=== PATIENT | female | born 1945 | race Caucasian/White ===

== ENCOUNTER → 2017-10-14 | Outpatient (CLI) | payer MEDICARE | END | disposition home or self-care (01) | LOC: CFH 08:19 | PROVIDERS: ATTEND Nurse Practitioner Primary Care | DX: M51.16 Intervertebral disc disorders with radiculopathy, lumbar region (principal) | CPT/HCPCS: 72114; 72148 ==

== ENCOUNTER 2018-05-14 06:04 | Observation (INO) | payer MEDICARE ==
[~2018-05-14] VITALS: Ht 160 cm; Wt 46.9 kg
[2018-05-14] MEDS ORDERED: ONDANSETRON 2MG/ML, 2ML ONE ×2 (07:54→12:31)
[2018-05-14] MEDS ORDERED: HYDROmorphone 2 MG/ML, 1ML ONE ×2 (07:54→12:31)
[2018-05-14] MEDS ORDERED: ONDANSETRON 2MG/ML, 2ML IVPush ONE (08:00)
[2018-05-14] MEDS ORDERED: SODIUM CHLORIDE 0.9% 1,000ML IVBOLUS ONE (08:00)
[2018-05-14] MEDS ORDERED: SODIUM CHLORIDE FLUSH 10ML SYR IVF ONE (08:00)
[2018-05-14] MEDS: HYDROmorphone 2 MG/ML, 1ML IVPush PRN ×2 (08:04→12:36)
[2018-05-14 08:19] LABS: ALANINE AMINOTRANSFERASE 25 U/L (12-78); ALBUMIN 3.2 g/dL (3.4-5.0); ANION GAP 8 mmol/L (5-15); CALCIUM 8.7 mg/dL (8.5-10.1); CHLORIDE 104 mmol/L (98-107)
[2018-05-14 08:21] LABS: ALKALINE PHOSPHATASE 348 U/L (45-117); BILIRUBIN,TOTAL 0.4 mg/dL (0.2-1.0); TOTAL PROTEIN 7.8 g/dL (6.4-8.2)
[2018-05-14] MEDS ORDERED: OMNIPAQUE 350 MG/ML, 100ML BOTTLE ONE (08:41)
[2018-05-14 08:46] LABS: MICROSCOPIC INDICATED
[2018-05-14 08:59] LABS: CULTURE INDICATED? NO
[2018-05-14] MEDS ORDERED: METOCLOPRAMIDE 5 MG/ML, 2ML ONE (09:17)
[2018-05-14 09:22] LABS: BASOPHILS # (AUTO) 0.06 x10^3/uL (0-0.1); BASOPHILS % (AUTO) 1 % (0-1); EOSINOPHILS # (AUTO) 0.08 x10^3/uL (0-0.4); EOSINOPHILS % (AUTO) 1 % (1-7); LYMPHOCYTES # (AUTO) 1.89 x10^3/uL (1-3.4); LYMPHOCYTES % (AUTO) 20 % (22-44); MD NO; MEAN CORPUSCULAR HEMOGLOBIN 28.5 pg (27.0-34.8); MEAN CORPUSCULAR HGB CONC 32.6 g/dL (32.4-35.8); MEAN CORPUSCULAR VOLUME 87.3 fL (80-100); MEAN PLATELET VOLUME 8.6 fL (7.4-10.4); MONOCYTES # (AUTO) 0.83 x10^3/uL (0.2-0.8); MONOCYTES % (AUTO) 9 % (2-9); NEUTROPHILS # (AUTO) 6.65 x10^3/uL (1.8-6.8); NEUTROPHILS % (AUTO) 70 % (42-75); PLATELET COUNT 369 x10^3/uL (130-400); RED BLOOD COUNT 4.69 x10^6/uL (3.82-5.3); RED CELL DISTRIBUTION WIDTH 13.3 % (9.6-15.2)
[2018-05-14] MEDS ORDERED: METOCLOPRAMIDE 5 MG/ML, 2ML IVPush ONE (09:30)
[2018-05-14] MEDS ORDERED: LEVO75TA PO (12:22)
[2018-05-14] MEDS ORDERED: MORPHINE PEG (12:22)
[2018-05-14] MEDS ORDERED: OXYC10TA6 PO (12:22)
[2018-05-14] MEDS ORDERED: [UNRECOGNIZED DRUG - REMARK] PEG (12:22)
[2018-05-14] MEDS ORDERED: METOCLOPRAMIDE 5 MG/ML, 2ML IVPush PRN (12:30)
[2018-05-14] MEDS ORDERED: hydrALAzine 20 MG/ML, 1ML IVPush PRN (12:30)
[2018-05-14] MEDS ORDERED: LABETALOL 5MG/ML, 20ML IVPush PRN (12:30)
[2018-05-14] MEDS: ONDANSETRON 2MG/ML, 2ML IVPush PRN (12:36)
[2018-05-14 13:05] LABS: THYROID STIMULATING HORMONE 1.01 mIU/L (0.358-3.740)
[2018-05-14 15:32] VITALS: BP 216/100
[2018-05-14 16:16] LABS: RAPID INFLUENZA A Negative (Negative); RAPID INFLUENZA B Negative (Negative)
[2018-05-14 17:10] VITALS: BP 176/95
[2018-05-14] MEDS ORDERED: TIZA4CAP PO (17:14)
[2018-05-14 17:24] VITALS: BP 216/100
[2018-05-14] MEDS ORDERED: OXYcodone 5 MG/5 ML ORAL.SOL UDC PO PRN (18:30)
[2018-05-14] MEDS: OXYCODONE MC SCH (19:00)
[2018-05-14] MEDS: [UNRECOGNIZED DRUG - OTHER] MC SCH (19:00)
[2018-05-14] MEDS ORDERED: AMLODIPINE 5 MG TABLET PO ONE (19:00)
[2018-05-14] MEDS: MORPHINE MC SCH (19:00)
[2018-05-14] MEDS ORDERED: TIZANIDINE 4MG TABLET PO PRN (19:00)
[2018-05-14 19:09] VITALS: BP 177/74
[2018-05-14 20:47] VITALS: BP 180/61
[2018-05-14] MEDS ORDERED: TEMPLATE NON-FORMULARY MED. (Oxycodone Hcl** 10 MG) PO SCH (21:00)
[2018-05-14] MEDS ORDERED: [UNRECOGNIZED DRUG - OTHER] PEG SCH (21:00)
[2018-05-14] MEDS ORDERED: MORPHINE 15 MG PEG SCH (21:00)
[2018-05-14] MEDS: PANTOPRAZOLE 40 MG IV IVPush SCH (21:26)
[2018-05-14 22:52] VITALS: BP 172/94
[2018-05-14] MEDS ORDERED: ACETAMINOPHEN 325 MG TABLET PO PRN (23:00)
[2018-05-15 00:59] VITALS: BP 153/84
[2018-05-15] MEDS: OXYCODONE MC SCH (03:00)
[2018-05-15] MEDS: MORPHINE MC SCH (03:00)
[2018-05-15] MEDS: [UNRECOGNIZED DRUG - OTHER] MC SCH (03:00)
[2018-05-15] MEDS: ONDANSETRON 2MG/ML, 2ML IVPush PRN (04:00)
[2018-05-15 04:34] LABS: BASOPHILS # (AUTO) 0.09 x10^3/uL (0-0.1); BASOPHILS % (AUTO) 1 % (0-1); EOSINOPHILS # (AUTO) 0.01 x10^3/uL (0-0.4); EOSINOPHILS % (AUTO) 0 % (1-7); LYMPHOCYTES # (AUTO) 2.43 x10^3/uL (1-3.4); LYMPHOCYTES % (AUTO) 23 % (22-44); MD NO; MEAN CORPUSCULAR HEMOGLOBIN 29.3 pg (27.0-34.8); MEAN CORPUSCULAR HGB CONC 33.6 g/dL (32.4-35.8); MEAN CORPUSCULAR VOLUME 87.3 fL (80-100); MEAN PLATELET VOLUME 8.4 fL (7.4-10.4); MONOCYTES # (AUTO) 1.03 x10^3/uL (0.2-0.8); MONOCYTES % (AUTO) 10 % (2-9); NEUTROPHILS # (AUTO) 6.87 x10^3/uL (1.8-6.8); NEUTROPHILS % (AUTO) 66 % (42-75); PLATELET COUNT 435 x10^3/uL (130-400); RED BLOOD COUNT 5.21 x10^6/uL (3.82-5.3); RED CELL DISTRIBUTION WIDTH 13.1 % (9.6-15.2)
[2018-05-15 04:47] LABS: ANION GAP 11 mmol/L (5-15); CALCIUM 8.4 mg/dL (8.5-10.1); CHLORIDE 97 mmol/L (98-107)
[2018-05-15 04:49] LABS: CREATININE 0.54 mg/dL (0.55-1.02)
[2018-05-15] MEDS ORDERED: LEVOTHYROXINE 75 MCG TABLET PO SCH (06:00)
[2018-05-15] MEDS ORDERED: PANTOPRAZOLE 40 MG IV IVPush SCH (07:30)
[2018-05-15 07:45] VITALS: BP 172/86
[2018-05-15] MEDS ORDERED: POTASSIUM CHLORIDE 20 MEQ TAB.ER.PRT PO ONE (08:30)
[2018-05-15] MEDS ORDERED: OXYcodone IR 5MG TABLET PO SCH (08:31)
[2018-05-15] MEDS ORDERED: AMLODIPINE 5 MG TABLET PO SCH (09:00)
[2018-05-15] MEDS: PANTOPRAZOLE 40 MG IV IVPush SCH (09:03)
[2018-05-15] MEDS ORDERED: SUCRALFATE 1 GM/10 ML UDC PO SCH (11:00)
[2018-05-15 13:10] VITALS: BP 124/76
[2018-05-15] MEDS ORDERED: PANT20TA2 PO (16:01)
[2018-05-15] MEDS ORDERED: SUCR1ORA11 PO (16:01)
[2018-05-15] MEDS ORDERED: ONDA4TAB7 PO (16:01)
[2018-05-15] MEDS ORDERED: AMLO-150 PO (16:01)
[2018-05-15 16:43] VITALS: BP 146/81
== END 2018-05-15 16:55 | disposition home or self-care (01) ==
LOC: ED 09:47 → EDIP 12:11 → 3NE 15:02
PROVIDERS: ADMIT Hospitalist; ATTEND Hospitalist
DX: R11.2 Nausea with vomiting, unspecified (principal); J44.9 Chronic obstructive pulmonary disease, unspecified; I73.9 Peripheral vascular disease, unspecified; G89.29 Other chronic pain; Z87.11 Personal history of peptic ulcer disease; Z87.891 Personal history of nicotine dependence; Z79.899 Other long term (current) drug therapy
CPT/HCPCS: 36415; 74177; 74220; 80048; 80053; 81001; 83605; 83690; 83735; 84100; 84443; 85025; 87400; 93005; 96361; 96374; 96375; 96376; 99284; C9113; G0378; J0360; J1170; J2405; J2765; J7030; Q9967

== ENCOUNTER → 2018-05-21 | Outpatient (CLI) | payer MEDICARE ==
[~2018-05-21] MED LIST: AMLO-150 PO; LEVO75TA PO; MORP15TA PO; MORPHINE PEG; ONDA4TAB7 PO; OXYC10TA6 PO; PANT20TA2 PO; SUCR1ORA11 PO; TIZA4CAP PO; [UNRECOGNIZED DRUG - REMARK] PEG
== END | disposition home or self-care (01) ==
LOC: RAD 08:38
PROVIDERS: ATTEND Nurse Practitioner Critical Care Medicine
DX: Z02.9 Encounter for administrative examinations, unspecified (principal)

== ENCOUNTER → 2018-05-24 | Outpatient (CLI) | payer MEDICARE | END | disposition home or self-care (01) | LOC: RAD 07:16 | PROVIDERS: ATTEND Nurse Practitioner Critical Care Medicine | DX: M48.54XA Collapsed vertebra, not elsewhere classified, thoracic region, initial encounter for fracture (principal); M48.04 Spinal stenosis, thoracic region | CPT/HCPCS: 72146 ==

== ENCOUNTER → 2018-06-02 | Outpatient (CLI) | payer MEDICARE ==
[2018-06-02 09:28] LABS: BASOPHILS # (AUTO) 0.03 x10^3/uL (0-0.1); BASOPHILS % (AUTO) 0 % (0-1); EOSINOPHILS # (AUTO) 0.06 x10^3/uL (0-0.4); EOSINOPHILS % (AUTO) 1 % (1-7); LYMPHOCYTES # (AUTO) 2.01 x10^3/uL (1-3.4); LYMPHOCYTES % (AUTO) 17 % (22-44); MD NO; MEAN CORPUSCULAR HEMOGLOBIN 29.6 pg (27.0-34.8); MEAN CORPUSCULAR HGB CONC 33.4 g/dL (32.4-35.8); MEAN CORPUSCULAR VOLUME 88.5 fL (80-100); MEAN PLATELET VOLUME 8.4 fL (7.4-10.4); MONOCYTES % (AUTO) 9 % (2-9); NEUTROPHILS # (AUTO) 8.78 x10^3/uL (1.8-6.8); NEUTROPHILS % (AUTO) 73 % (42-75); PLATELET COUNT 423 x10^3/uL (130-400); RED BLOOD COUNT 5.07 x10^6/uL (3.82-5.3); RED CELL DISTRIBUTION WIDTH 13.6 % (9.6-15.2)
[2018-06-02 09:36] LABS: INTERNATIONAL NORMALIZED RATIO 1.08 (0.93-1.1); PROTHROMBIN TIME 11.4 Seconds (9.6-11.5)
[2018-06-02 09:39] LABS: ALANINE AMINOTRANSFERASE 23 U/L (12-78); ANION GAP 8 mmol/L (5-15); CALCIUM 8.8 mg/dL (8.5-10.1); CHLORIDE 97 mmol/L (98-107); CREATININE 0.81 mg/dL (0.55-1.02)
[2018-06-02 09:41] LABS: ALKALINE PHOSPHATASE 313 U/L (45-117); BILIRUBIN,TOTAL 0.6 mg/dL (0.2-1.0); TOTAL PROTEIN 8.1 g/dL (6.4-8.2)
== END | disposition home or self-care (01) ==
LOC: STAR 08:23
PROVIDERS: ATTEND Neurological Surgery
DX: Z01.818 Encounter for other preprocedural examination (principal); D49.9 Neoplasm of unspecified behavior of unspecified site
CPT/HCPCS: 36415; 80053; 85025; 85610; 85730

== ENCOUNTER 2018-06-06 05:32 | Inpatient (IN) | payer MEDICARE ==
[2018-06-02 09:50] VITALS: BP 153/89
[~2018-06-06] VITALS: Ht 160 cm; Wt 55.9 kg
[2018-06-06] MEDS ORDERED: LACTATED RINGERS 1,000 ML IV SCH (06:26)
[2018-06-06] MEDS ORDERED: OXYcodone IR 5MG TABLET PO ONE (07:00)
[2018-06-06] MEDS ORDERED: REMIFENTANIL 2 MG ONE (07:04)
[2018-06-06] MEDS ORDERED: SUGAMMADEX 200 MG/2 ML IVPush ONE (07:05)
[2018-06-06] MEDS ORDERED: PROPOFOL 50 ML ONE ×4 (09:25→14:00)
[2018-06-06] MEDS ORDERED: FENTANYL PF 250 MCG/5ML ONE (09:26)
[2018-06-06] MEDS ORDERED: MIDAZOLAM 1 MG/ML, 2ML ONE (09:26)
[2018-06-06] MEDS ORDERED: BUPIVACAINE/PF-EPI 0.5% 1:200K ONE ×2 (09:27→14:12)
[2018-06-06] MEDS ORDERED: THROMBIN 5,000 UNIT VIAL TP ONE ×2 (09:27→09:53)
[2018-06-06] MEDS ORDERED: BACITRACIN 50,000 UNIT ONE (09:32)
[2018-06-06] MEDS ORDERED: METHYLENE BLUE 10 MG/ML 10ML ONE (09:32)
[2018-06-06] MEDS ORDERED: LABETALOL 5MG/ML, 20ML ONE (09:57)
[2018-06-06] MEDS ORDERED: SUCCINYLCHOLINE 20 MG/ML, 10ML ONE (09:57)
[2018-06-06] MEDS ORDERED: ONDANSETRON 2MG/ML, 2ML ONE (09:57)
[2018-06-06] MEDS ORDERED: METOPROLOL 1 MG/ML, 5ML ONE (09:57)
[2018-06-06] MEDS ORDERED: DEXAMETHASONE 4 MG/ML, 1ML ONE (09:57)
[2018-06-06] MEDS ORDERED: PHENYLEPHRINE 10 MG/ML ONE (09:57)
[2018-06-06] MEDS ORDERED: KETAMINE 10 MG/ML, 20ML ONE (09:57)
[2018-06-06] MEDS ORDERED: CEFAZOLIN 1,000 MG ONE (09:57)
[2018-06-06] MEDS ORDERED: KETOROLAC 30 MG/1 ML ONE (09:57)
[2018-06-06] MEDS ORDERED: FENTANYL PF 100 MCG/2ML ONE ×2 (14:42→15:23)
[2018-06-06] MEDS ORDERED: DIAZEPAM 5 MG/ML, 2ML IV PRN (15:00)
[2018-06-06] MEDS ORDERED: OXYcodone 5 MG/5 ML ORAL.SOL UDC ONE (15:23)
[2018-06-06] MEDS ORDERED: hydrALAzine 20 MG/ML, 1ML ONE (15:23)
[2018-06-06] MEDS ORDERED: hydrALAzine 20 MG/ML, 1ML IV PRN (16:00)
[2018-06-06] MEDS ORDERED: OXYcodone 5 MG/5 ML ORAL.SOL UDC PO PRN (16:00)
[2018-06-06] MEDS ORDERED: FENTANYL PF 100 MCG/2ML IV PRN (16:00)
[2018-06-06] MEDS ORDERED: HYDROmorphone 2 MG/ML, 1ML IVPush PRN (16:00)
[2018-06-06] MEDS: CEFAZOLIN PMX 1GM/50ML 50 ML IVPB SCH (17:51)
[2018-06-06] MEDS: NS + 40MEQ KCL 1,000 ML IV SCH (17:51)
[2018-06-06 18:19] LABS: ALBUMIN 2.8 g/dL (3.4-5.0); ANION GAP 7 mmol/L (5-15); CALCIUM 8.5 mg/dL (8.5-10.1); CHLORIDE 100 mmol/L (98-107)
[2018-06-06 18:22] LABS: ALANINE AMINOTRANSFERASE 21 U/L (12-78); ALKALINE PHOSPHATASE 302 U/L (45-117); BILIRUBIN,TOTAL 0.8 mg/dL (0.2-1.0); CREATININE 0.73 mg/dL (0.55-1.02)
[2018-06-06 18:24] LABS: MD NO
[2018-06-06 18:25] LABS: BASOPHILS # (AUTO) 0.08 x10^3/uL (0-0.1); BASOPHILS % (AUTO) 1 % (0-1); EOSINOPHILS # (AUTO) 0.17 x10^3/uL (0-0.4); EOSINOPHILS % (AUTO) 2 % (1-7); LYMPHOCYTES # (AUTO) 1.76 x10^3/uL (1-3.4); LYMPHOCYTES % (AUTO) 23 % (22-44); MEAN CORPUSCULAR HEMOGLOBIN 29.6 pg (27.0-34.8); MEAN CORPUSCULAR HGB CONC 33.7 g/dL (32.4-35.8); MEAN CORPUSCULAR VOLUME 87.7 fL (80-100); MONOCYTES % (AUTO) 13 % (2-9); NEUTROPHILS # (AUTO) 4.77 x10^3/uL (1.8-6.8); NEUTROPHILS % (AUTO) 61 % (42-75); PLATELET COUNT 362 x10^3/uL (130-400); RED BLOOD COUNT 4.65 x10^6/uL (3.82-5.3); RED CELL DISTRIBUTION WIDTH 13.9 % (9.6-15.2)
[2018-06-06 18:26] LABS: HEMOGRAM NOTE RECHECKED
[2018-06-06] MEDS: PANTOPRAZOLE 20MG TABLET PO SCH (21:07)
[2018-06-07] MEDS: CEFAZOLIN PMX 1GM/50ML 50 ML IVPB SCH (01:22)
[2018-06-07] MEDS: NS + 40MEQ KCL 1,000 ML IV SCH (03:00)
[2018-06-07 04:00] VITALS: BP 128/62
[2018-06-07] MEDS: LEVOTHYROXINE 75 MCG TABLET PO SCH (05:26)
[2018-06-07 06:14] LABS: MEAN CORPUSCULAR HEMOGLOBIN 29.2 pg (27.0-34.8); MEAN CORPUSCULAR HGB CONC 33.1 g/dL (32.4-35.8); MEAN CORPUSCULAR VOLUME 88.2 fL (80-100); MEAN PLATELET VOLUME 8.7 fL (7.4-10.4); PLATELET COUNT 410 x10^3/uL (130-400); RED BLOOD COUNT 4.13 x10^6/uL (3.82-5.3); RED CELL DISTRIBUTION WIDTH 13.9 % (9.6-15.2)
[2018-06-07 06:15] LABS: ANION GAP 8 mmol/L (5-15); CALCIUM 7.2 mg/dL (8.5-10.1); CHLORIDE 109 mmol/L (98-107)
[2018-06-07 06:17] LABS: CREATININE 0.74 mg/dL (0.55-1.02)
[2018-06-07 06:51] LABS: MD YES
[2018-06-07 06:56] LABS: BAND#(MANUAL) 0.71 x10^3/uL; BANDS%(MANUAL) 4 % (0-7); LYMPH#(MANUAL) 1.78 x10^3/uL (1-3.4); LYMPHS% (MANUAL) 10 % (22-44); MONOS#(MANUAL) 1.42 x10^3/uL (0.3-2.7); MONOS% (MANUAL) 8 % (2-9); SEG#(MANUAL) 13.88 x10^3/uL (1.8-6.8); SEGS% (MANUAL) 78 % (42-75)
[2018-06-07 06:58] LABS: <PLATELET ESTIMATE> INCREASED; <PLT MORPHOLOGY> NORMAL PLT MORPH; <RBC MORPHOLOGY> NORMAL
[2018-06-07] MEDS ORDERED: MAGNESIUM SULFATE PMX 2GM/50ML 50 ML IV ONE (07:30)
[2018-06-07] MEDS: PANTOPRAZOLE 20MG TABLET PO SCH ×2 (10:33→23:10)
[2018-06-07 13:00] VITALS: BP 142/68
[2018-06-07] MEDS: DIAZEPAM 5 MG TABLET PO SCH ×2 (13:08→17:21)
[2018-06-07 16:32] VITALS: BP 163/83
[2018-06-07] MEDS: SODIUM CHLORIDE 0.9% 1,000 ML IV SCH (17:28)
[2018-06-07 20:59] VITALS: BP 162/76
[2018-06-07] MEDS: TIZANIDINE 4MG TABLET PO PRN (23:10)
[2018-06-08 03:05] VITALS: BP 127/71
[2018-06-08] MEDS: SODIUM CHLORIDE 0.9% 1,000 ML IV SCH ×2 (03:30→14:26)
[2018-06-08 04:53] LABS: MEAN CORPUSCULAR HEMOGLOBIN 29.4 pg (27.0-34.8); MEAN CORPUSCULAR HGB CONC 33.3 g/dL (32.4-35.8); MEAN CORPUSCULAR VOLUME 88.4 fL (80-100); MEAN PLATELET VOLUME 8.1 fL (7.4-10.4); PLATELET COUNT 340 x10^3/uL (130-400); RED BLOOD COUNT 3.09 x10^6/uL (3.82-5.3); RED CELL DISTRIBUTION WIDTH 14.4 % (9.6-15.2)
[2018-06-08 04:57] LABS: ANION GAP 6 mmol/L (5-15); CALCIUM 6.7 mg/dL (8.5-10.1); CHLORIDE 109 mmol/L (98-107); CREATININE 0.37 mg/dL (0.55-1.02)
[2018-06-08 05:05] LABS: BASOPHILS # (AUTO) 0.09 x10^3/uL (0-0.1); BASOPHILS % (AUTO) 1 % (0-1); EOSINOPHILS # (AUTO) 0.01 x10^3/uL (0-0.4); EOSINOPHILS % (AUTO) 0 % (1-7); LYMPHOCYTES % (AUTO) 17 % (22-44); MD SCAN; MONOCYTES # (AUTO) 1.15 x10^3/uL (0.2-0.8); MONOCYTES % (AUTO) 9 % (2-9); NEUTROPHILS # (AUTO) 10.04 x10^3/uL (1.8-6.8); NEUTROPHILS % (AUTO) 74 % (42-75)
[2018-06-08] MEDS: LEVOTHYROXINE 75 MCG TABLET PO SCH (06:15)
[2018-06-08 07:47] VITALS: BP 101/63
[2018-06-08] MEDS: DIAZEPAM 5 MG TABLET PO SCH ×3 (08:00→17:28)
[2018-06-08] MEDS: PANTOPRAZOLE 20MG TABLET PO SCH ×2 (09:01→20:01)
[2018-06-08 13:08] VITALS: BP 148/76
[2018-06-08] MEDS: OXYcodone/APAP 10/325MG TABLET PO PRN ×2 (14:26→20:01)
[2018-06-08 19:40] VITALS: BP 109/66
[2018-06-08] MEDS ORDERED: MAGNESIUM SULFATE PMX 2GM/50ML 50 ML IV ONE (21:00)
[2018-06-09 00:50] VITALS: BP 135/76
[2018-06-09] MEDS: SODIUM CHLORIDE 0.9% 1,000 ML IV SCH ×3 (01:59→21:33)
[2018-06-09] MEDS: OXYcodone/APAP 10/325MG TABLET PO PRN ×6 (02:34→23:43)
[2018-06-09] MEDS: LEVOTHYROXINE 75 MCG TABLET PO SCH (06:07)
[2018-06-09 07:41] VITALS: BP 151/82
[2018-06-09] MEDS: DIAZEPAM 5 MG TABLET PO SCH ×3 (08:00→17:00)
[2018-06-09] MEDS: PANTOPRAZOLE 20MG TABLET PO SCH ×2 (08:29→19:43)
[2018-06-09 13:40] VITALS: BP 115/73
[2018-06-09 19:43] VITALS: BP 119/68
[2018-06-09] MEDS: TIZANIDINE 4MG TABLET PO PRN (19:43)
[2018-06-10 02:29] VITALS: BP 87/51
[2018-06-10] MEDS: OXYcodone/APAP 10/325MG TABLET PO PRN ×2 (05:06→11:01)
[2018-06-10] MEDS: LEVOTHYROXINE 75 MCG TABLET PO SCH (05:06)
[2018-06-10] MEDS: DIAZEPAM 5 MG TABLET PO SCH ×2 (08:00→12:00)
[2018-06-10] MEDS: SODIUM CHLORIDE 0.9% 1,000 ML IV SCH (08:00)
[2018-06-10 09:47] VITALS: BP 120/81
[2018-06-10] MEDS ORDERED: POLYETHYLENE GLYCOL 17 GM PACKET PO SCH (10:30)
[2018-06-10] MEDS ORDERED: DOCUSATE 100 MG CAPSULE PO SCH (10:30)
[2018-06-10] MEDS ORDERED: BISACODYL 10 MG SUPP PR PRN (10:30)
[2018-06-10] MEDS: PANTOPRAZOLE 20MG TABLET PO SCH (10:53)
[2018-06-10 12:50] VITALS: BP 115/68
== END 2018-06-10 14:40 | DRG 456 ==
LOC: ORIP 05:32 → CCU 16:27 → 4NOR 06-07 16:06
PROVIDERS: ADMIT Neurological Surgery; ATTEND Neurological Surgery
PROC: 0PB40ZZ Excision of Thoracic Vertebra, Open Approach (ICD-10-PCS; 2018-06-06)
PROC: 03HC33Z Insertion of Infusion Device into Left Radial Artery, Percutaneous Approach (ICD-10-PCS; 2018-06-06)
PROC: 4A11X4G Monitoring of Peripheral Nervous Electrical Activity, Intraoperative, External Approach (ICD-10-PCS; 2018-06-06)
PROC: 0RG70K1 Fusion of 2 to 7 Thoracic Vertebral Joints with Nonautologous Tissue Substitute, Posterior Approach, Posterior Column, Open Approach (ICD-10-PCS; principal; 2018-06-06 07:00)
DX: C79.51 Secondary malignant neoplasm of bone (principal); E43 Unspecified severe protein-calorie malnutrition; M84.58XA Pathological fracture in neoplastic disease, other specified site, initial encounter for fracture; C85.99 Non-Hodgkin lymphoma, unspecified, extranodal and solid organ sites; J44.9 Chronic obstructive pulmonary disease, unspecified; K21.9 Gastro-esophageal reflux disease without esophagitis; E03.9 Hypothyroidism, unspecified; I35.0 Nonrheumatic aortic (valve) stenosis; M40.209 Unspecified kyphosis, site unspecified; Z90.49 Acquired absence of other specified parts of digestive tract; Z98.1 Arthrodesis status; Z88.0 Allergy status to penicillin; Z88.1 Allergy status to other antibiotic agents; Z80.9 Family history of malignant neoplasm, unspecified; Z82.49 Family history of ischemic heart disease and other diseases of the circulatory system; Z87.891 Personal history of nicotine dependence; Z81.1 Family history of alcohol abuse and dependence; Z80.8 Family history of malignant neoplasm of other organs or systems; Z84.89 Family history of other specified conditions; Z85.3 Personal history of malignant neoplasm of breast; Z90.13 Acquired absence of bilateral breasts and nipples
CPT/HCPCS: 36415; 72072; 80048; 80053; 83735; 84100; 85025; 86850; 86900; 87081; 88184; 88185; 88305; 88331; 88341; 88342; 88360; 88377; 95938; 95941; C1713; G0378; J0690; J1100; J1885; J2250; J2270; J2405; J2704; J3010; J3360; C1762; J0330; J0360; J2370; J3475; J3480; J7030; J7120; Q9968

== ENCOUNTER → 2018-07-07 | Outpatient (CLI) | payer MEDICARE | END | disposition home or self-care (01) | LOC: ROC 07:41 | PROVIDERS: ATTEND Radiology Radiation Oncology | DX: C79.51 Secondary malignant neoplasm of bone (principal); K21.9 Gastro-esophageal reflux disease without esophagitis; J44.9 Chronic obstructive pulmonary disease, unspecified | CPT/HCPCS: 99214; G0463 ==

== ENCOUNTER 2018-07-14 08:43 | Outpatient (CLI) | payer MEDICARE | END 2018-07-14 23:59 | disposition home or self-care (01) | LOC: PETCFH 08:43 | PROVIDERS: ATTEND Radiology Radiation Oncology | DX: Z02.9 Encounter for administrative examinations, unspecified (principal) ==